=== PATIENT | male | born 1940 | race Caucasian/White ===

== ENCOUNTER 2016-11-07 07:23 | Day surgery (SDC) | payer MEDICARE, OTHER ==
[~2016-11-07] VITALS: Ht 182.9 cm; Wt 97.2 kg
[2016-11-07] VITALS (10 sets, daily range): BP systolic 18–129; BP diastolic 47–84; PULSE 52–63; TEMP 98.1
[2016-11-07 07:59] LABS: HEMATOCRIT 39.8 % (42.0-52.0); HEMOGLOBIN 13.1 g/dl (13.5-18.0); MEAN CELL VOLUME 86 fl (80.0-100.0); MEAN CORPUSCULAR HEMOGLOBIN 28 pg (27.0-31.0); MEAN CORPUSCULAR HGB CONC 33 g/dl (33.0-37.0); MEAN PLATELET VOLUME 8.4 fl (7.4-10.4); PLATELET COUNT 245 K/mm3 (130-400); RED BLOOD COUNT 4.64 M/mm3 (4.20-5.60); REDCELL DISTRIBUTION WIDTH-CV 13.5 % (11.5-14.5); WHITE BLOOD COUNT 6.7 K/mm3 (4.8-10.8)
[2016-11-07 08:08] LABS: INR 1.3 (0.8-3.0); PROTHROMBIN TIME 14.2 SECONDS (9.7-12.8)
[2016-11-07] MEDS ORDERED: WELCHOL3.75 GM/Pa PO (08:08)
[2016-11-07] MEDS ORDERED: TOUJEO300 U/ML SQ (08:09)
[2016-11-07] MEDS ORDERED: AMOXICILLIN 8751 TAB PO (08:09)
[2016-11-07] MEDS ORDERED: FLOMAX 0.40.4 MG/CAP PO (08:10)
[2016-11-07] MEDS ORDERED: MEVACOR40 MG PO (08:11)
[2016-11-07] MEDS ORDERED: LANOXIN 0.120.125 MG PO (08:12)
[2016-11-07] MEDS ORDERED: COUMADIN4 MG PO (08:13)
[2016-11-07] MEDS ORDERED: GLUCOPHAGE500 MG/TAB PO (08:13)
[2016-11-07] MEDS ORDERED: FISH OIL 1000MG1 CAP PO (08:14)
[2016-11-07] MEDS ORDERED: PRINIVIL10 MG PO (08:14)
[2016-11-07] MEDS ORDERED: NATURAL E400 IU PO (08:15)
[2016-11-07] MEDS ORDERED: MULTIPLE VITAMI1 CAP PO (08:15)
[2016-11-07 08:38] LABS: CALCIUM 9.4 mg/dL (8.4-10.2); CREATININE, serum 1.01 mg/dL (0.66-1.25); POTASSIUM 4.4 mmol/L (3.4-5.0)
[2016-11-07] MEDS ORDERED: ZEBETA 5MG5 MG PO (12:28)
[2016-11-07] MEDS ORDERED: ASPIRIN 81M81 MG/TA2 PO (13:14)
== END 2016-11-07 12:22 | disposition home or self-care (01) ==
LOC: COL.RAD 07:23
PROVIDERS: Internal Medicine Cardiovascular Disease
DX: I25.10 Atherosclerotic heart disease of native coronary artery without angina pectoris (principal); R94.39 Abnormal result of other cardiovascular function study; I35.8 Other nonrheumatic aortic valve disorders; E11.9 Type 2 diabetes mellitus without complications; Z79.84 Long term (current) use of oral hypoglycemic drugs; I10 Essential (primary) hypertension; E78.5 Hyperlipidemia, unspecified; Z79.01 Long term (current) use of anticoagulants; Z79.899 Other long term (current) drug therapy
CPT/HCPCS: C1769; C1887; J2250; J3010; Q9967

== ENCOUNTER 2016-11-18 07:02 | Day surgery (SDC) | payer MEDICARE, OTHER ==
[2016-11-18] VITALS (710 sets, daily range): BP systolic 103–129; BP diastolic 58–72; PULSE 51–98; TEMP 97.5–98.2; O2SAT 85–100
[~2016-11-18] VITALS: Ht 182.9 cm; Wt 92.8 kg
[~2016-11-18 07:02] MED LIST: AMOXICILLIN 8751 TAB PO; ASPIRIN 81M81 MG/TA2 PO; COUMADIN4 MG PO; FISH OIL 1000MG1 CAP PO; FLOMAX 0.40.4 MG/CAP PO; GLUCOPHAGE500 MG/TAB PO; LANOXIN 0.120.125 MG PO; MEVACOR40 MG PO; MULTIPLE VITAMI1 CAP PO; NATURAL E400 IU PO; PRINIVIL10 MG PO; TOUJEO300 U/ML SQ; WELCHOL3.75 GM/Pa PO; ZEBETA 5MG5 MG PO
[2016-11-18 07:47] LABS: HEMATOCRIT 38.3 % (42.0-52.0); HEMOGLOBIN 12.5 g/dl (13.5-18.0); MEAN CELL VOLUME 86 fl (80.0-100.0); MEAN CORPUSCULAR HEMOGLOBIN 28 pg (27.0-31.0); MEAN CORPUSCULAR HGB CONC 33 g/dl (33.0-37.0); MEAN PLATELET VOLUME 8.8 fl (7.4-10.4); PLATELET COUNT 207 K/mm3 (130-400); RED BLOOD COUNT 4.44 M/mm3 (4.20-5.60); REDCELL DISTRIBUTION WIDTH-CV 14.1 % (11.5-14.5); WHITE BLOOD COUNT 6.1 K/mm3 (4.8-10.8)
[2016-11-18 07:48] LABS: INR 1.4 (0.8-3.0); PROTHROMBIN TIME 15.1 SECONDS (9.7-12.8)
[2016-11-18 07:57] LABS: CALCIUM 8.8 mg/dL (8.4-10.2); CREATININE, serum 1.01 mg/dL (0.66-1.25); POTASSIUM 4.2 mmol/L (3.4-5.0)
[2016-11-18] MEDS ORDERED: COUMADIN4 MG PO (08:01)
[2016-11-19] VITALS (418 sets, daily range): BP systolic 101–130; BP diastolic 59–70; PULSE 51–60; TEMP 98.2–98.3; O2SAT 88–100
[2016-11-19 05:50] LABS: BASO # 0.1 (0.0-0.2); BASO % 1.1 % (0.0-2.0); EOS # 0.6 (0.0-0.7); EOS % 9.1 % (0-4.0); GRAN # 4.7 (1.4-6.5); GRAN % 66.4 % (42.2-75.2); HEMATOCRIT 37.9 % (42.0-52.0); HEMOGLOBIN 12.4 g/dl (13.5-18.0); LYMPH % 13.8 % (20.0-51.0); MEAN CELL VOLUME 87 fl (80.0-100.0); MEAN CORPUSCULAR HEMOGLOBIN 28 pg (27.0-31.0); MEAN CORPUSCULAR HGB CONC 33 g/dl (33.0-37.0); MEAN PLATELET VOLUME 8.7 fl (7.4-10.4); MONO # 0.7 (0.1-0.6); MONO % 9.2 % (1.7-9.3); PLATELET COUNT 210 K/mm3 (130-400); RED BLOOD COUNT 4.38 M/mm3 (4.20-5.60); REDCELL DISTRIBUTION WIDTH-CV 14.2 % (11.5-14.5); WHITE BLOOD COUNT 7.1 K/mm3 (4.8-10.8)
[2016-11-19 05:55] LABS: INR 1.3 (0.8-3.0); PROTHROMBIN TIME 14.7 SECONDS (9.7-12.8)
[2016-11-19 06:01] LABS: CALCIUM 8.8 mg/dL (8.4-10.2); CREATININE, serum 0.92 mg/dL (0.66-1.25); POTASSIUM 3.9 mmol/L (3.4-5.0)
[2016-11-19] MEDS ORDERED: EFFIENT10 MG PO (10:13)
== END 2016-11-19 12:22 | disposition home or self-care (01) ==
LOC: EUO 07:02 → IMCU 10:30 → EUO 11-19 12:22
PROVIDERS: Internal Medicine Cardiovascular Disease
DX: I25.10 Atherosclerotic heart disease of native coronary artery without angina pectoris (principal); R07.9 Chest pain, unspecified; I35.0 Nonrheumatic aortic (valve) stenosis; E11.9 Type 2 diabetes mellitus without complications; Z79.84 Long term (current) use of oral hypoglycemic drugs; I10 Essential (primary) hypertension; E78.5 Hyperlipidemia, unspecified; J45.909 Unspecified asthma, uncomplicated
CPT/HCPCS: OP; C1760; C1769; C1876; C1887; C1894; J0583; J1815; J2250; J3010; Q9967

== ENCOUNTER 2016-12-12 10:31 | Day surgery (SDC) | payer MEDICARE, OTHER ==
[~2016-12-12] VITALS: Ht 182.9 cm; Wt 92.3 kg
[2016-12-12] VITALS (299 sets, daily range): BP systolic 57–111; BP diastolic 41–91; PULSE 48–66; TEMP 96.7–98; O2SAT 94–100
[~2016-12-12 10:31] MED LIST changes: +EFFIENT10 MG PO
[2016-12-12] MEDS ORDERED: ZEBETA 5MG5 MG PO (11:40)
[2016-12-12] MEDS ORDERED: GLUCOPHAGE500 MG/TAB PO (11:44)
[2016-12-12] MEDS ORDERED: LIVALO4 MG PO (11:47)
[2016-12-12] MEDS ORDERED: COUMADIN 6MG6 MG/TAB PO (11:49)
[2016-12-12 17:26] LABS: BASO # 0.1 (0.0-0.2); BASO % 0.8 % (0.0-2.0); EOS # 0.2 (0.0-0.7); EOS % 3.1 % (0-4.0); GRAN # 4.3 (1.4-6.5); GRAN % 68.7 % (42.2-75.2); LYMPH # 1.1 (1.2-3.4); LYMPH % 17.2 % (20.0-51.0); MEAN CELL VOLUME 86 fl (80.0-100.0); MEAN CORPUSCULAR HGB CONC 33 g/dl (33.0-37.0); MEAN PLATELET VOLUME 8.8 fl (7.4-10.4); MONO # 0.6 (0.1-0.6); MONO % 9.7 % (1.7-9.3); PLATELET COUNT 215 K/mm3 (130-400); RED BLOOD COUNT 3.67 M/mm3 (4.20-5.60); REDCELL DISTRIBUTION WIDTH-CV 14.3 % (11.5-14.5); WHITE BLOOD COUNT 6.2 K/mm3 (4.8-10.8)
[2016-12-12 17:30] LABS: HEMATOCRIT 31.7 % (42.0-52.0); HEMOGLOBIN 10.4 g/dl (13.5-18.0); MEAN CORPUSCULAR HEMOGLOBIN 28 pg (27.0-31.0)
[2016-12-12 17:32] LABS: INR 1.9 (0.8-3.0); PROTHROMBIN TIME 21.5 SECONDS (9.7-12.8)
[2016-12-12 17:45] LABS: ADJUSTED CALCIUM 9.2 mg/dL (8.4-10.2); ALBUMIN 3.4 gm/dL (3.5-5.0); BILIRUBIN,TOTAL 0.7 mg/dL (0.0-1.0); CALCIUM 8.7 mg/dL (8.4-10.2); CREATININE, serum 1.16 mg/dL (0.66-1.25); MAGNESIUM 1.8 mg/dL (1.6-2.3); POTASSIUM 3.9 mmol/L (3.4-5.0); TOTAL PROTEIN 6.5 gm/dL (6.4-8.2)
[2016-12-13] VITALS (438 sets, daily range): BP systolic 97–116; BP diastolic 66–76; PULSE 48–62; TEMP 97.5–98; O2SAT 91–100
[2016-12-13 00:11] LABS: HEMATOCRIT 30.6 % (42.0-52.0); HEMOGLOBIN 10.2 g/dl (13.5-18.0)
[2016-12-13 06:24] LABS: HEMATOCRIT 31.2 % (42.0-52.0); HEMOGLOBIN 10.4 g/dl (13.5-18.0)
== END 2016-12-13 16:14 | disposition home or self-care (01) ==
LOC: SDCO 10:31 → IMCU 16:24 → SDCO 12-13 16:14
PROVIDERS: Internal Medicine
DX: D50.0 Iron deficiency anemia secondary to blood loss (chronic) (principal); R19.5 Other fecal abnormalities; K44.9 Diaphragmatic hernia without obstruction or gangrene; K92.2 Gastrointestinal hemorrhage, unspecified; K57.30 Diverticulosis of large intestine without perforation or abscess without bleeding
CPT/HCPCS: OP; 99223-AI; J1815; J2704; J7030

== ENCOUNTER 2021-11-06 06:02 | Day surgery (SDC) | payer MEDICARE ==
[~2021-11-06] VITALS: Ht 182.9 cm; Wt 98.1 kg
[2021-11-06] VITALS (14 sets, daily range): BP systolic 117–145; BP diastolic 56–72; PULSE 50–59; TEMP 98.3
[~2021-11-06 06:02] MED LIST changes: +COUMADIN 6MG6 MG/TAB PO; +LIVALO4 MG PO
[2021-11-06 06:58] LABS: HEMATOCRIT 38.1 % (42.0-52.0); HEMOGLOBIN 12.7 g/dl (13.5-18.0); MEAN CELL VOLUME 89 fl (80.0-100.0); MEAN CORPUSCULAR HEMOGLOBIN 30 pg (27-31); MEAN CORPUSCULAR HGB CONC 33 g/dl (33.0-37.0); MEAN PLATELET VOLUME 8.5 fl (7.4-10.4); PLATELET COUNT 291 K/mm3 (130-400); REDCELL DISTRIBUTION WIDTH-CV 14.2 % (11.5-14.5)
[2021-11-06 07:11] LABS: CALCIUM 8.6 mg/dL (8.4-10.2); CREATININE, serum 1.03 mg/dL (0.72-1.25); POTASSIUM 3.9 mmol/L (3.5-4.5)
[2021-11-06 07:11] LABS: INR 1.4 (0.8-3.0); PROTHROMBIN TIME 15.3 SECONDS (9.7-12.8)
[2021-11-06 07:13] LABS: PARTIAL THROMBOPLASTIN TIME 33.3 SECONDS (26.0-37.0)
[2021-11-06] MEDS ORDERED: TRESIBA FL100 UNIT/1 SQ (07:37)
[2021-11-06] MEDS ORDERED: COUMADIN 6MG6 MG/TAB PO (07:38)
[2021-11-06] MEDS ORDERED: LIPITOR20 MG PO (07:38)
[2021-11-06] MEDS ORDERED: TYLENOL 500MG500 MG PO (07:39)
[2021-11-06] MEDS ORDERED: MELATONIN3 M1 PO (07:45)
--- NOTE | 2021-11-06 08:00 | NUR ---
Pt arrived via ambulatory at 0600>per pt report his bs was 54 at 0500 this am,pt reports symtpoms of low bs.Apple juice provided,BS obtained showed 56.Anesthesia paged.Per Enily,Anesthesia ok for pt to drink apple juice.1/2 amb D50 given as ordered once INT started.BS monitor and noted in labs.Reported to Dr Pike's nurse this am.Reported to laboratory phlebotomist nurseMilly.
--- NOTE | 2021-11-06 08:36 | NUR ---
Pt to procedure.Report to Moises Atkins.
--- NOTE | 2021-11-06 08:40 | NUR ---
SEE MERGE FOR ALL MEDICATION ADMINISTRATION TIMES/DOSAGES AND INTRA/POST SEDATION ASSESSMENT. SEE ANESTHESIA RECORD FOR STACY PORTION OF PROCEDURE.
--- NOTE | 2021-11-06 10:10 | NUR ---
Pt returned from procedure,report from ALICIA Sifuentes.
--- NOTE | 2021-11-06 14:30 | NUR ---
aLL AIR RELASED FROM BAND IN 2-3 ML INCRIMENTS.nO BLEEDING OBSERVED AT RIGHT RADIAL SITE.
--- NOTE | 2021-11-06 15:02 | NUR ---
Discharge instructions given to pt.pt verbalizes understanding.INT removed,catheter tip intact.Dressing to right radial site observed clean,dry,intact,and soft to touch.Pt escorted out via wheelchair by this nurse.
== END 2021-11-06 15:20 ==
LOC: COL.CAR 06:02
PROVIDERS: Internal Medicine Cardiovascular Disease
DX: I25.10 Atherosclerotic heart disease of native coronary artery without angina pectoris (principal); I35.0 Nonrheumatic aortic (valve) stenosis; I48.92 Unspecified atrial flutter; I10 Essential (primary) hypertension; E11.9 Type 2 diabetes mellitus without complications; E78.5 Hyperlipidemia, unspecified; M19.90 Unspecified osteoarthritis, unspecified site; D64.9 Anemia, unspecified; Z79.84 Long term (current) use of oral hypoglycemic drugs; Z79.899 Other long term (current) drug therapy; Z79.01 Long term (current) use of anticoagulants
CPT/HCPCS: J1644; J2250; J2704; J3010; Q9967